=== PATIENT | female | born 1940 | race Hispanic/Latino ===

== ENCOUNTER 2022-03-16 13:16 | Emergency (ER) | payer MEDICARE ==
[2022-03-16] MEDS ORDERED: HYDROCODON-ACE1 EA10 PO (19:31)
== END 2022-03-16 19:47 | disposition home or self-care (01) ==
LOC: ED 13:16
DX: S93.402A Sprain of unspecified ligament of left ankle, initial encounter (principal); S70.02XA Contusion of left hip, initial encounter; S70.12XA Contusion of left thigh, initial encounter; S40.011A Contusion of right shoulder, initial encounter; S00.83XA Contusion of other part of head, initial encounter; S09.90XA Unspecified injury of head, initial encounter; W10.9XXA Fall (on) (from) unspecified stairs and steps, initial encounter
CPT/HCPCS: 36415; 70450; 71250; 71260; 72125; 73502; 73560; 73610; 74176; 74177; 80053; 85025; 85610; 96374; 96376; 99284-25; A9270; J1170; Q9967